=== PATIENT | female | born 1990 | race African-American/Black ===

== ENCOUNTER 2021-02-08 12:54 | Inpatient (IN) | payer OTHER ==
[2021-02-08 13:33] LABS: #Monocytes 0.6 10x3/uL (0.0-1.1); #Neutrophils 7.3 10x3/uL (1.5-8.4); %Basophils 0.2 % (0.0-2.0); %Monocytes 6.7 % (0.0-10.0); %Neutrophils 80.9 % (40.0-75.0); Hemoglobin 14.2 g/dL (12.0-15.5); Mean Corpuscular Hemoglobin 28.6 pg (27.0-33.0); Mean Corpuscular Volume 92.2 fl (81.6-98.3); Mean Platelet Volume 10.4 fl (7.4-10.4); Platelet Count 157 10x3/uL (150-450); RBC Distribution Width 14.2 % (11.5-14.5); Red Blood Cell (RBC) Count 4.97 10x6/uL (3.90-5.03)
[2021-02-08 13:46] LABS: ALT (SGPT) 11 U/L (8-55); AST (SGOT) 19 U/L (5-34); Albumin 4.3 g/dL (3.5-5.0); Alkaline Phosphatase 65 U/L (40-110); Anion Gap 14 mmol/L (10-20); BUN (Urea Nitrogen) 8 mg/dL (7.0-18.7); Bilirubin, Total 0.4 mg/dL (0.2-1.2); Calc. Creatinine Clearance 0 mL/min (70-130); Calcium 9.4 mg/dL (7.8-10.44); Carbon Dioxide 23 mmol/L (22-29); Chloride 104 mmol/L (98-107); Globulin 3.9 g/dL (2.4-3.5); Glucose 111 mg/dL (70-105); Potassium 3.7 mmol/L (3.5-5.1); Protein, Total 8.2 g/dL (6.0-8.3); Sodium 137 mmol/L (136-145)
[2021-02-08 15:06] LABS: SARS-CoV-2 NAA Rapid Test DETECTED (NotDetected)
[2021-02-08] MEDS ORDERED: Dexamethasone 10 MG/ML VIAL ONE (16:08)
[2021-02-08] MEDS ORDERED: Ondansetron PF 4 MG/2 ML Vial IVP PRN (17:04)
[2021-02-08] MEDS ORDERED: Guaifenesin DM 100-10/5 ML UDCUP PO PRN (17:04)
[2021-02-08] MEDS ORDERED: Bisacodyl 10 MG SUPP PR PRN (17:04)
[2021-02-08] MEDS ORDERED: Acetaminophen 650 MG/20.3 ML UDCUP PO PRN (17:16)
[2021-02-08] MEDS ORDERED: Haloperidol Lactate 5 MG/ML VIAL SLOW IVP PRN (17:17)
[2021-02-08] MEDS ORDERED: Labetalol HCl 100 MG/20 ML VIAL SLOW IVP PRN (17:57)
[2021-02-08 18:35] LABS: Lactic Acid 1.5 mmol/L (0.5-2.2)
[2021-02-08 19:33] LABS: D-Dimer Test 0.74 mg/L FEU (0.19-0.50); INR-International Normal Ratio 1.1; Prothrombin Time 11.4 sec (9.5-12.1)
[2021-02-08] MEDS ORDERED: Mometasone/Formoterol 200/5 60 PUFF INH SCH (20:00)
[2021-02-08] MEDS ORDERED: REMDESIVIR (EUA) 200 MG in Sodium Chloride 0.9% 250 ML 210 ML IV SCH (20:00)
[2021-02-08 20:06] VITALS: BMI 32.0
[2021-02-08] MEDS: cefTRIAXone\\ROCEPHIN 1 GM in Sodium Chloride 0.9% 100 ML IVPB SCH (21:15)
[2021-02-08] MEDS: Polyethylene Glycol 3350 17 GM Packet PO SCH (22:00)
[2021-02-08] MEDS: Enoxaparin Sodium 40 MG/0.4 ML SYRINGE SC SCH (22:00)
[2021-02-08] MEDS ORDERED: Zolpidem Tartrate 5 MG TAB PO SCH (22:15)
[2021-02-08] MEDS: Azithromycin 500 MG in Sodium Chloride 0.9% 250 ML 250 ML IVPB SCH (22:45)
[2021-02-09 06:33] LABS: Hemoglobin 13.2 g/dL (12.0-15.5); Mean Corpuscular HGB CONC 31.1 g/dL (32.0-36.0); Mean Corpuscular Hemoglobin 28.7 pg (27.0-33.0); Mean Corpuscular Volume 92.4 fl (81.6-98.3); Mean Platelet Volume 11.2 fl (7.4-10.4); Platelet Count 149 10x3/uL (150-450); RBC Distribution Width 14.2 % (11.5-14.5); White Blood Cell (WBC) Count 6.6 10x3/uL (3.5-10.5)
[2021-02-09 06:42] LABS: Anion Gap 14 mmol/L (10-20); BUN (Urea Nitrogen) 8 mg/dL (7.0-18.7); Calc. Creatinine Clearance 119 mL/min (70-130); Calcium 9.1 mg/dL (7.8-10.44); Carbon Dioxide 21 mmol/L (22-29); Chloride 109 mmol/L (98-107); Glucose 120 mg/dL (70-105); Potassium 4.1 mmol/L (3.5-5.1); Sodium 140 mmol/L (136-145)
[2021-02-09 07:50] LABS: MDiff Complete? YES
[2021-02-09 07:53] LABS: Band 3 % (5-11); Lymphocytes 16 % (21-51); Monocytes 9 % (0-10); Neutrophil 71 % (42-75); Reactive Lymphocytes 1 % (0-10)
[2021-02-09 07:54] LABS: Platelet Morphology Comment Appears Adequate
[2021-02-09] MEDS: Mometasone/Formoterol 200/5 60 PUFF INH SCH ×2 (07:55→19:39)
[2021-02-09] MEDS: Ascorbic Acid 500 mg Chewable Tablet PO SCH (09:54)
[2021-02-09] MEDS: Pantoprazole 40 MG GRANULES PACKET PO SCH (09:54)
[2021-02-09] MEDS: Dexamethasone 20 MG/5 ML VIAL SLOW IVP SCH (09:55)
[2021-02-09] MEDS: Enoxaparin Sodium 40 MG/0.4 ML SYRINGE SC SCH ×2 (09:56→22:10)
[2021-02-09] MEDS: Polyethylene Glycol 3350 17 GM Packet PO SCH ×2 (09:56→22:10)
[2021-02-09] MEDS: REMDESIVIR (EUA) 100 MG in Sodium Chloride 0.9% 250 ML 230 ML IV SCH (17:48)
[2021-02-09] MEDS: Azithromycin 500 MG in Sodium Chloride 0.9% 250 ML 250 ML IVPB SCH (22:14)
[2021-02-09] MEDS: cefTRIAXone\\ROCEPHIN 1 GM in Sodium Chloride 0.9% 100 ML IVPB SCH (23:45)
[2021-02-10 06:42] LABS: Hemoglobin 13.1 g/dL (12.0-15.5); Mean Corpuscular HGB CONC 31.3 g/dL (32.0-36.0); Mean Corpuscular Volume 92.7 fl (81.6-98.3); Mean Platelet Volume 11.1 fl (7.4-10.4); Platelet Count 178 10x3/uL (150-450); RBC Distribution Width 14.4 % (11.5-14.5); Red Blood Cell (RBC) Count 4.51 10x6/uL (3.90-5.03); White Blood Cell (WBC) Count 12.5 10x3/uL (3.5-10.5)
[2021-02-10 07:04] LABS: ALT (SGPT) 13 U/L (8-55); AST (SGOT) 21 U/L (5-34); Albumin 3.6 g/dL (3.5-5.0); Alkaline Phosphatase 52 U/L (40-110); Bilirubin, Direct 0.2 mg/dL (0.1-0.3); Bilirubin, Total 0.3 mg/dL (0.2-1.2); Protein, Total 7.1 g/dL (6.0-8.3)
[2021-02-10 07:06] LABS: Anion Gap 12 mmol/L (10-20); BUN (Urea Nitrogen) 13 mg/dL (7.0-18.7); CRP (Inflammatory) 3.74 mg/dL (= or < 0.5); Calc. Creatinine Clearance 112 mL/min (70-130); Calcium 9.2 mg/dL (7.8-10.44); Carbon Dioxide 25 mmol/L (22-29); Chloride 109 mmol/L (98-107); Glucose 131 mg/dL (70-105); Potassium 4.3 mmol/L (3.5-5.1); Sodium 142 mmol/L (136-145)
[2021-02-10] MEDS: Mometasone/Formoterol 200/5 60 PUFF INH SCH ×2 (07:29→19:45)
[2021-02-10] MEDS: Ascorbic Acid 500 mg Chewable Tablet PO SCH (08:18)
[2021-02-10] MEDS: Polyethylene Glycol 3350 17 GM Packet PO SCH (08:19)
[2021-02-10] MEDS: Pantoprazole 40 MG GRANULES PACKET PO SCH (08:19)
[2021-02-10] MEDS: Enoxaparin Sodium 40 MG/0.4 ML SYRINGE SC SCH (08:19)
[2021-02-10] MEDS: Dexamethasone 20 MG/5 ML VIAL SLOW IVP SCH (08:19)
[2021-02-10 08:37] LABS: MDiff Complete? YES
[2021-02-10 08:39] LABS: Band 7 % (5-11); Eosinophils 1 % (0-10); Lymphocytes 13 % (21-51); Monocytes 4 % (0-10); Neutrophil 74 % (42-75); Reactive Lymphocytes 1 % (0-10)
[2021-02-10 08:40] LABS: Platelet Morphology Comment Appears Adequate; RBC Morphology Normal
[2021-02-10] MEDS: REMDESIVIR (EUA) 100 MG in Sodium Chloride 0.9% 250 ML 230 ML IV SCH (22:04)
[2021-02-10] MEDS: Azithromycin 500 MG in Sodium Chloride 0.9% 250 ML 250 ML IVPB SCH (23:04)
[2021-02-11] MEDS: Polyethylene Glycol 3350 17 GM Packet PO SCH ×3 (01:21→20:30)
[2021-02-11] MEDS: cefTRIAXone\\ROCEPHIN 1 GM in Sodium Chloride 0.9% 100 ML IVPB SCH ×2 (01:21→23:43)
[2021-02-11] MEDS: Mometasone/Formoterol 200/5 60 PUFF INH SCH ×2 (08:30→20:29)
[2021-02-11] MEDS: Dexamethasone 20 MG/5 ML VIAL SLOW IVP SCH (08:38)
[2021-02-11] MEDS: Enoxaparin Sodium 40 MG/0.4 ML SYRINGE SC SCH (08:38)
[2021-02-11] MEDS: Ascorbic Acid 500 mg Chewable Tablet PO SCH (08:38)
[2021-02-11] MEDS: Pantoprazole 40 MG GRANULES PACKET PO SCH (08:39)
[2021-02-11 09:04] LABS: #Monocytes 1.2 10x3/uL (0.0-1.1); #Neutrophils 10.1 10x3/uL (1.5-8.4); %Basophils 0.3 % (0.0-2.0); %Lymphocytes 12.5 % (18.0-47.0); %Neutrophils 77.4 % (40.0-75.0); Hemoglobin 12.6 g/dL (12.0-15.5); Mean Corpuscular Hemoglobin 28.9 pg (27.0-33.0); Mean Corpuscular Volume 93.1 fl (81.6-98.3); Mean Platelet Volume 11.6 fl (7.4-10.4); Platelet Count 210 10x3/uL (150-450); RBC Distribution Width 14.6 % (11.5-14.5); Red Blood Cell (RBC) Count 4.36 10x6/uL (3.90-5.03); White Blood Cell (WBC) Count 13.1 10x3/uL (3.5-10.5)
[2021-02-11 09:25] LABS: ALT (SGPT) 23 U/L (8-55); AST (SGOT) 24 U/L (5-34); Albumin 3.3 g/dL (3.5-5.0); Alkaline Phosphatase 44 U/L (40-110); Anion Gap 12 mmol/L (10-20); BUN (Urea Nitrogen) 13 mg/dL (7.0-18.7); Bilirubin, Direct 0.1 mg/dL (0.1-0.3); Bilirubin, Total 0.2 mg/dL (0.2-1.2); Calc. Creatinine Clearance 111 mL/min (70-130); Calcium 8.8 mg/dL (7.8-10.44); Carbon Dioxide 26 mmol/L (22-29); Chloride 110 mmol/L (98-107); Glucose 115 mg/dL (70-105); Potassium 4.1 mmol/L (3.5-5.1); Protein, Total 6.5 g/dL (6.0-8.3); Sodium 144 mmol/L (136-145)
[2021-02-11] MEDS ORDERED: Sodium Chloride 0.9% 250 ML 250 ML ONE (20:12)
[2021-02-11] MEDS: REMDESIVIR (EUA) 100 MG in Sodium Chloride 0.9% 250 ML 230 ML IV SCH (20:30)
[2021-02-11] MEDS: Azithromycin 500 MG in Sodium Chloride 0.9% 250 ML 250 ML IVPB SCH (23:41)
[2021-02-12] MEDS: Mometasone/Formoterol 200/5 60 PUFF INH SCH ×2 (06:26→20:22)
[2021-02-12 07:39] LABS: ALT (SGPT) 22 U/L (8-55); AST (SGOT) 25 U/L (5-34); Albumin 3.2 g/dL (3.5-5.0); Alkaline Phosphatase 50 U/L (40-110); Bilirubin, Direct 0.1 mg/dL (0.1-0.3); Bilirubin, Total 0.2 mg/dL (0.2-1.2); Protein, Total 6.4 g/dL (6.0-8.3)
[2021-02-12] MEDS: Polyethylene Glycol 3350 17 GM Packet PO SCH ×2 (08:22→22:23)
[2021-02-12] MEDS: Pantoprazole 40 MG GRANULES PACKET PO SCH (08:22)
[2021-02-12] MEDS: Dexamethasone 20 MG/5 ML VIAL SLOW IVP SCH (08:22)
[2021-02-12] MEDS: Enoxaparin Sodium 40 MG/0.4 ML SYRINGE SC SCH (08:22)
[2021-02-12] MEDS: Ascorbic Acid 500 mg Chewable Tablet PO SCH (08:22)
[2021-02-12] MEDS: REMDESIVIR (EUA) 100 MG in Sodium Chloride 0.9% 250 ML 230 ML IV SCH (20:23)
[2021-02-12] MEDS: Azithromycin 500 MG in Sodium Chloride 0.9% 250 ML 250 ML IVPB SCH (21:29)
[2021-02-13] MEDS: cefTRIAXone\\ROCEPHIN 1 GM in Sodium Chloride 0.9% 100 ML IVPB SCH (00:08)
[2021-02-13] MEDS: Mometasone/Formoterol 200/5 60 PUFF INH SCH ×2 (08:13→19:30)
[2021-02-13] MEDS: Enoxaparin Sodium 40 MG/0.4 ML SYRINGE SC SCH (09:00)
[2021-02-13] MEDS: Ascorbic Acid 500 mg Chewable Tablet PO SCH (09:00)
[2021-02-13] MEDS: Dexamethasone 20 MG/5 ML VIAL SLOW IVP SCH (09:00)
[2021-02-13] MEDS: Pantoprazole 40 MG GRANULES PACKET PO SCH (09:00)
[2021-02-13] MEDS: Polyethylene Glycol 3350 17 GM Packet PO SCH ×2 (18:56→20:52)
[2021-02-14 05:57] LABS: Anion Gap 12 mmol/L (10-20); BUN (Urea Nitrogen) 8 mg/dL (7.0-18.7); Calc. Creatinine Clearance 126 mL/min (70-130); Calcium 9.2 mg/dL (7.8-10.44); Carbon Dioxide 27 mmol/L (22-29); Chloride 106 mmol/L (98-107); Glucose 104 mg/dL (70-105); Potassium 3.9 mmol/L (3.5-5.1); Sodium 141 mmol/L (136-145)
[2021-02-14 06:00] LABS: #Basophils 0.1 10x3/uL (0.0-0.2); #Monocytes 1.6 10x3/uL (0.0-1.1); #Neutrophils 11.5 10x3/uL (1.5-8.4); %Basophils 0.4 % (0.0-2.0); %Eosinophils 0.2 % (0.0-6.0); %Lymphocytes 22.6 % (18.0-47.0); %Monocytes 8.9 % (0.0-10.0); %Neutrophils 65.8 % (40.0-75.0); Hemoglobin 13.7 g/dL (12.0-15.5); Mean Corpuscular HGB CONC 31.3 g/dL (32.0-36.0); Mean Corpuscular Hemoglobin 28.6 pg (27.0-33.0); Mean Corpuscular Volume 91.4 fl (81.6-98.3); Mean Platelet Volume 11.4 fl (7.4-10.4); Platelet Count 213 10x3/uL (150-450); RBC Distribution Width 14.4 % (11.5-14.5); Red Blood Cell (RBC) Count 4.79 10x6/uL (3.90-5.03); White Blood Cell (WBC) Count 17.5 10x3/uL (3.5-10.5)
[2021-02-14] MEDS: Ascorbic Acid 500 mg Chewable Tablet PO SCH (08:44)
[2021-02-14] MEDS: Dexamethasone 20 MG/5 ML VIAL SLOW IVP SCH ×2 (08:44→08:58)
[2021-02-14] MEDS: Enoxaparin Sodium 40 MG/0.4 ML SYRINGE SC SCH (08:44)
[2021-02-14] MEDS: Polyethylene Glycol 3350 17 GM Packet PO SCH (08:44)
[2021-02-14] MEDS: Pantoprazole 40 MG GRANULES PACKET PO SCH (08:45)
[2021-02-14] MEDS: Mometasone/Formoterol 200/5 60 PUFF INH SCH (09:11)
[2021-02-14 12:39] VITALS: BP 126/74; TEMP 98.6
== END 2021-02-14 14:34 | disposition home or self-care (01) | DRG 871 ==
LOC: CSHERS 12:54 → CSHTELE 20:02
PROVIDERS: ADMIT Internal Medicine; ATTEND Internal Medicine
PROC: XW033E5 Introduction of Remdesivir Anti-infective into Peripheral Vein, Percutaneous Approach, New Technology Group 5 (ICD-10-PCS; principal; 2021-02-08)
PROC: 8E0ZXY6 Isolation (ICD-10-PCS; 2021-02-08)
DX: A41.89 Other specified sepsis (principal); U07.1 COVID-19; J12.82 Pneumonia due to coronavirus disease 2019; J96.01 Acute respiratory failure with hypoxia; Q87.2 Congenital malformation syndromes predominantly involving limbs; K44.9 Diaphragmatic hernia without obstruction or gangrene; I10 Essential (primary) hypertension; K59.09 Other constipation; Z83.1 Family history of other infectious and parasitic diseases; Z82.49 Family history of ischemic heart disease and other diseases of the circulatory system
CPT/HCPCS: 0240U; 36415; 71045; 71046; 80048; 80053; 80076; 82728; 83605; 85025; 85379; 85610; 86140; 93005; 94760; 96374; J0456; J0696; J1100; J1650; J3490; J7050

== ENCOUNTER 2025-08-30 21:51 | Inpatient (IN) | payer OTHER ==
[~2025-08-30 21:51] MED LIST: Iopamidol 370 76% 100 ML VIAL ONE
[2025-08-30 22:23] LABS: Glucose, Urine (Dipstick) Normal (Negative); Leukocyte 25 (Negative); Protein, Urine (Dipstick) Negative (Neg-Trace); Specific Gravity, Urine 1.020 (1.005-1.030)
[2025-08-30 22:24] LABS: Pregnancy Test - Urine (BHCG) Negative (Negative); Pregu Control Background? CLEAR/WHITE (CLR/WHITE); Pregu Control Bar Appear? YES (CONTROL BAR)
[2025-08-30 22:36] LABS: CAUTI Indications for Culture Dysuria,urgency,freq; RBC/HPF None Seen HPF (0-3)
[2025-08-30 22:37] LABS: Urine Culture Reflex No No
[2025-08-30 23:19] LABS: #Basophils 0.05 10x3/uL (0.0-0.2); #Eosinophils 0.29 10x3/uL (0.0-0.5); #Monocytes 1.19 10x3/uL (0.0-1.1); #Neutrophils 8.55 10x3/uL (1.5-8.4); %Basophils 0.4 % (0.0-2.0); %Eosinophils 2.0 % (0.0-6.0); %Lymphocytes 29.0 % (18.0-47.0); %Monocytes 8.4 % (0.0-10.0); %Neutrophils 59.9 % (40.0-75.0); Hematocrit 44.4 % (34.9-44.5); Hemoglobin 13.9 g/dL (12.0-15.5); Mean Corpuscular Hemoglobin 29.1 pg (27.0-33.0); Mean Corpuscular Volume 93.1 fL (81.6-98.3); Platelet Count 186 10x3/uL (150-450); Red Blood Cell (RBC) Count 4.77 10x6/uL (3.90-5.03); White Blood Cell (WBC) Count 14.25 10x3/uL (3.5-10.5)
[2025-08-30] MEDS ORDERED: Ketorolac Tromethamine 30 MG (1 mL) VIAL ONE (23:32)
[2025-08-30 23:39] LABS: ALT (SGPT) 16 U/L (Less than 34); AST (SGOT) 17 U/L (11-34); Albumin 4.2 g/dL (3.1-4.5); Alkaline Phosphatase 76 U/L (40-110); Anion Gap 13 mmol/L (10-20); BUN (Urea Nitrogen) 12 mg/dL (7.0-18.7); Bilirubin, Total 0.2 mg/dL (0.3-1.2); Calc. Creatinine Clearance 0 mL/min (70-130); Calcium 9.6 mg/dL (7.8-10.44); Carbon Dioxide 22 mmol/L (22-29); Chloride 110 mmol/L (98-107); Globulin 3.3 g/dL (2.4-3.5); Glucose 114 mg/dL (70-105); Lipase 65 U/L (8-78); Magnesium 2.2 mg/dL (1.6-2.6); Potassium 3.6 mmol/L (3.5-5.1); Sodium 141 mmol/L (136-145)
[2025-08-30 23:45] LABS: Troponin I Less than 0.010 ng/mL (< 0.028)
[2025-08-31] MEDS ORDERED: Acetaminophen 325 MG TAB PO PRN (00:53)
[2025-08-31] MEDS: Bisacodyl 10 MG SUPP PR PRN (02:10)
[2025-08-31] MEDS: Ondansetron PF 4 MG/2 ML Vial IVP PRN (02:15)
[2025-08-31 04:24] VITALS: BMI 31.1
[2025-08-31 04:37] LABS: #Basophils Less than 0.03 10x3/uL (0.0-0.2); #Eosinophils 0.24 10x3/uL (0.0-0.5); #Monocytes 0.79 10x3/uL (0.0-1.1); #Neutrophils 7.31 10x3/uL (1.5-8.4); %Basophils 0.2 % (0.0-2.0); %Eosinophils 2.1 % (0.0-6.0); %Lymphocytes 27.9 % (18.0-47.0); %Monocytes 6.8 % (0.0-10.0); %Neutrophils 62.6 % (40.0-75.0); Hematocrit 39.0 % (34.9-44.5); Hemoglobin 12.6 g/dL (12.0-15.5); Mean Corpuscular Hemoglobin 30.0 pg (27.0-33.0); Mean Corpuscular Volume 92.9 fL (81.6-98.3); Platelet Count 171 10x3/uL (150-450); Red Blood Cell (RBC) Count 4.20 10x6/uL (3.90-5.03); White Blood Cell (WBC) Count 11.67 10x3/uL (3.5-10.5)
[2025-08-31 04:54] LABS: Anion Gap 10 mmol/L (10-20); BUN (Urea Nitrogen) 11 mg/dL (7.0-18.7); Calc. Creatinine Clearance 106 mL/min (70-130); Calcium 8.9 mg/dL (7.8-10.44); Carbon Dioxide 22 mmol/L (22-29); Chloride 111 mmol/L (98-107); Glucose 81 mg/dL (70-105); Potassium 3.9 mmol/L (3.5-5.1); Sodium 139 mmol/L (136-145)
[2025-08-31] MEDS: Pantoprazole 40 MG DR.TAB PO SCH (08:58)
[2025-08-31] MEDS: Enoxaparin 40 MG (0.4 mL) SYRINGE SC SCH (08:58)
[2025-08-31] MEDS ORDERED: Bisacodyl 10 MG SUPP PR PRN (15:00)
[2025-08-31] MEDS: risperiDONE 1 MG TAB PO SCH (20:51)
[2025-09-01 06:02] LABS: #Basophils Less than 0.03 10x3/uL (0.0-0.2); #Eosinophils 0.28 10x3/uL (0.0-0.5); #Monocytes 0.74 10x3/uL (0.0-1.1); #Neutrophils 6.64 10x3/uL (1.5-8.4); %Basophils 0.2 % (0.0-2.0); %Eosinophils 2.6 % (0.0-6.0); %Lymphocytes 28.7 % (18.0-47.0); %Monocytes 6.8 % (0.0-10.0); %Neutrophils 61.3 % (40.0-75.0); Hematocrit 39.3 % (34.9-44.5); Hemoglobin 12.5 g/dL (12.0-15.5); Mean Corpuscular Hemoglobin 29.3 pg (27.0-33.0); Mean Corpuscular Volume 92.0 fL (81.6-98.3); Platelet Count 179 10x3/uL (150-450); Red Blood Cell (RBC) Count 4.27 10x6/uL (3.90-5.03); White Blood Cell (WBC) Count 10.83 10x3/uL (3.5-10.5)
[2025-09-01 06:17] LABS: Anion Gap 10 mmol/L (10-20); BUN (Urea Nitrogen) 10 mg/dL (7.0-18.7); Calc. Creatinine Clearance 83 mL/min (70-130); Calcium 9.2 mg/dL (7.8-10.44); Carbon Dioxide 23 mmol/L (22-29); Chloride 113 mmol/L (98-107); Glucose 86 mg/dL (70-105); Potassium 4.2 mmol/L (3.5-5.1); Sodium 142 mmol/L (136-145)
[2025-09-01] MEDS: Pantoprazole 40 MG DR.TAB PO SCH (08:35)
[2025-09-02 05:33] LABS: #Basophils 0.03 10x3/uL (0.0-0.2); #Eosinophils 0.26 10x3/uL (0.0-0.5); #Monocytes 0.94 10x3/uL (0.0-1.1); #Neutrophils 8.50 10x3/uL (1.5-8.4); %Basophils 0.2 % (0.0-2.0); %Eosinophils 2.0 % (0.0-6.0); %Lymphocytes 25.7 % (18.0-47.0); %Monocytes 7.1 % (0.0-10.0); %Neutrophils 64.5 % (40.0-75.0); Hematocrit 40.6 % (34.9-44.5); Hemoglobin 13.0 g/dL (12.0-15.5); Mean Corpuscular Hemoglobin 29.2 pg (27.0-33.0); Mean Corpuscular Volume 91.2 fL (81.6-98.3); Platelet Count 178 10x3/uL (150-450); Red Blood Cell (RBC) Count 4.45 10x6/uL (3.90-5.03); White Blood Cell (WBC) Count 13.17 10x3/uL (3.5-10.5)
[2025-09-03 06:24] LABS: #Basophils 0.04 10x3/uL (0.0-0.2); #Eosinophils 0.30 10x3/uL (0.0-0.5); #Monocytes 1.12 10x3/uL (0.0-1.1); #Neutrophils 9.60 10x3/uL (1.5-8.4); %Basophils 0.3 % (0.0-2.0); %Eosinophils 2.0 % (0.0-6.0); %Lymphocytes 25.6 % (18.0-47.0); %Monocytes 7.5 % (0.0-10.0); %Neutrophils 64.3 % (40.0-75.0); Hematocrit 45.5 % (34.9-44.5); Hemoglobin 14.5 g/dL (12.0-15.5); Mean Corpuscular Hemoglobin 28.9 pg (27.0-33.0); Mean Corpuscular Volume 90.8 fL (81.6-98.3); Platelet Count 192 10x3/uL (150-450); Red Blood Cell (RBC) Count 5.01 10x6/uL (3.90-5.03); White Blood Cell (WBC) Count 14.94 10x3/uL (3.5-10.5)
[2025-09-03] MEDS: Sulfameth/Trimethoprim DS 800-160mg TAB PO SCH (16:04)
[2025-09-03 17:22] VITALS: BP 127/60; TEMP 97.4
[2025-09-04] MEDS ORDERED: Sulfameth/Trimethoprim DS 800-160mg TAB PO SCH (09:00)
== END 2025-09-03 16:42 | disposition home or self-care (01) | DRG 872 ==
LOC: CSHERS 21:51 → CSHTELE 08-31 00:56
PROVIDERS: ADMIT Internal Medicine; ATTEND Family Medicine
DX: A41.9 Sepsis, unspecified organism (principal); Q87.2 Congenital malformation syndromes predominantly involving limbs; N39.0 Urinary tract infection, site not specified; I10 Essential (primary) hypertension; K59.09 Other constipation; Z86.73 Personal history of transient ischemic attack (TIA), and cerebral infarction without residual deficits; Z86.718 Personal history of other venous thrombosis and embolism; Z98.890 Other specified postprocedural states; J45.909 Unspecified asthma, uncomplicated; N28.1 Cyst of kidney, acquired; Z79.899 Other long term (current) drug therapy
CPT/HCPCS: 36415; 74177; 80048; 80053; 81001; 81025; 83605; 83690; 83735; 84484; 85025; 87040; 87077; 87086; 87186; 93005; 94760; 96374; 96375; J1650; J1885; J2185; J2405; Q0162; Q9967